=== PATIENT | female | born 1995 | race American Indian/Alaskan Native ===

== ENCOUNTER 2019-08-27 12:16 | Emergency (ER) | payer OTHER ==
[2019-08-27 12:20] VITALS: BP 149/69
[2019-08-27] MEDS ORDERED: ONDANSETRON 4 MG ODT TAB PO ONE (13:03)
--- NOTE | 2019-08-27 13:05 | Event Note ---
ED Screening Note ED Screening Note: lower abd pain 2 days with nausea, denies dysuria. oligomenorrhea hx. This initial assessment/diagnostic orders/clinical plan/treatment(s) is/are subject to change based on patients health status, clinical progression and re- assessment by fellow clinical providers in the ED. Further treatment and workup at subsequent clinical providers discretion. Patient/guardian urged not to elope from the ED as their condition may be serious if not clinically assessed and managed. Initial orders include: UA, UPT
[2019-08-27 14:31] LABS: Bilirubin,Urine NEG (Negative); Blood,Urine NEG (Negative); Color,Urine Straw (Yellow); Mucus,Urine FEW /HPF; Protein,Urine <15 mg/dL mg/dL (Negative); Urobilinogen,Urine < 2.0 mg/dL (<2.0)
[2019-08-27 14:34] LABS: HCG Qualitative,Urine Negative (Negative)
[2019-08-27 15:32] LABS: Basophils # (Auto) 0.1 K/mm3 (0.0-0.1); Eosinophils # (Auto) 0.2 K/mm3 (0.0-0.4); Eosinophils % (Auto) 1.9 % (0.0-4.3); Hematocrit 40.3 % (30.3-42.9); Hemoglobin 13.2 gm/dl (10.1-14.3); Lymphocytes # (Auto) 3.9 K/mm3 (1.2-5.4); Lymphocytes % (Auto) 37.9 % (13.4-35.0); Mean Corpuscular HGB Conc 33 % (30-34); Mean Corpuscular Volume 75 fl (79-97); Monocytes # (Auto) 0.6 K/mm3 (0.0-0.8); Monocytes % (Auto) 5.4 % (0.0-7.3); Platelet Count 334 K/mm3 (140-440); Red Blood Count 5.39 M/mm3 (3.65-5.03)
[2019-08-27] MEDS ORDERED: ONDANSETRON 4 MG ODT TAB ONE (15:39)
[2019-08-27 15:53] LABS: BUN/Creatinine Ratio 15; Blood Urea Nitrogen 9 mg/dL (7-17); Calcium 8.9 mg/dL (8.4-10.2); Hemolysis Index 5
--- NOTE | 2019-08-27 15:59 | Emergency Department Report ---
HPI - General Chief Complaint: Abdominal Pain Time Seen by Provider: 08/27/19 14:41 - HPI HPI: 24-year-old Afro-[place] female presents to the emergency department with complaint of lower abdominal and upper pelvic pain, some lower back pain, and nausea and vomiting, that all started this morning. The patient has a history of ovarian cysts. She has not taken anything for her symptoms prior to presentation. No PCP or MANAGER INTERFACE. No recent travel or sick contacts at home. She denies any fever, vaginal bleeding or discharge, dysuria, constipation or diarrhea. ED Past Medical Hx - Past Medical History Previous Medical History?: No - Surgical History Past Surgical History?: No - Social History Smoking Status: Never Smoker Substance Use Type: Alcohol - Medications Home Medications: Home Medications Medication Instructions Recorded Confirmed Last Taken Type Docusate Sodium [Colace] 100 mg PO BID PRN #20 capsule 08/27/19 Unknown Rx Magnesium Citrate [Citrate of 300 ml PO NOW #1 bottle 08/27/19 Unknown Rx Magnesia] ED Review of Systems ROS: Stated complaint: STOMACH/BACK PAIN Other details as noted in HPI Comment: All other systems reviewed and negative Constitutional: denies: chills, fever Respiratory: denies: cough, shortness of breath Cardiovascular: denies: chest pain, palpitations Gastrointestinal: abdominal pain, nausea, vomiting Genitourinary: denies: dysuria, discharge Musculoskeletal: back pain. denies: arthralgia Skin: denies: rash, lesions Neurological: denies: headache, weakness Physical Exam - Physical Exam Vital Signs: Vital Signs 08/27/19 12:19 Temperature 98.4 F Pulse Rate 88 Respiratory 16 Rate Blood Pressure 149/69 O2 Sat by Pulse 96 Oximetry Physical Exam: GENERAL: The patient is well-developed well-nourished. HEENT: Normocephalic. Atraumatic. Patient has moist mucous membranes. EYES: Extraocular motions are intact. NECK: Supple. Trachea is midline. CHEST/LUNGS: Clear to auscultation. There is no respiratory distress noted. HEART/CARDIOVASCULAR: Regular. There is no tachycardia. There is no murmur. ABDOMEN: Abdomen is soft. Mild lower abdominal tenderness to palpation. No guarding. Patient has normal bowel sounds. Morbidly obese habitus. SKIN:Skin is warm and dry. . NEURO: The patient is awake, alert, and oriented. The patient is cooperative. The patient has no focal neurologic deficits. Normal speech. MUSCULOSKELETAL: There is no tenderness or deformity. There is no evidence of acute injury. ED Course Vital Signs 08/27/19 12:19 Temperature 98.4 F Pulse Rate 88 Respiratory 16 Rate Blood Pressure 149/69 O2 Sat by Pulse 96 Oximetry ED Medical Decision Making - Lab Data Result diagrams: 08/27/19 15:16 08/27/19 15:16 - Radiology Data Radiology results: report reviewed, image reviewed interpreted by me: Abdominal x-ray shows increased stool volume and nonobstructive nonspecific bowel gas. ULTRASOUND PELVIS INDICATION: pelvic pain. TECHNIQUE: Transvaginal. Duplex Color Doppler used: Yes. COMPARISON: None available FINDINGS: Uterus: Present. Size: 7.3 x 3.3 x 4.2 cm. Endometrial complex: Normal measuring 0.5 cm. Mass lesions: None. Additional findings: None. Right Ovary: Size: 4.3 x 2.5 x 3.7 cm Blood flow: Normal. Cyst or mass: None. Left Ovary: Size: 5.1 x 2.8 x 2.2 cm Blood flow: Normal. Cyst or mass: None. Urinary Bladder: Not visualized. Free Fluid: None. Additional Findings: None. IMPRESSION: 1. No acute sonographic abnormality of the pelvis. - Medical Decision Making This patient presents with some lower abdominal and pelvic pain, some dysuria and low back pain that started this morning. On examination the patient has some mild lower abdominal tenderness to palpation but the abdomen is soft and nontoxic in appearance. It does not appear distended, however the patient has a morbidly obese habitus. The patient's labs were unremarkable including CBC, metabolic panel, urinalysis and urine . Transvaginal ultrasound did not show any signs of ovarian torsion or any other acute process. Abdominal x- ray shows nonspecific nonobstructive bowel gas with increased stool volume showing some constipation. Vital signs stable throughout her ED course. Patient was given some Zofran for her complaint of nausea but there has been no further vomiting since arrival to the emergency department. She was able to drink some water and was given a GI cocktail for her complaint of some indigestion. Vital signs stable throughout her ED course and the patient is saying that she is feeling improved and asking for discharge home. She has been instructed to follow up with a primary care physician and to return to the ER with any worsening of her symptoms or any acute distress. - Differential Diagnosis Torsion, ovarian cyst, , UTI, colitis Critical Care Time: No Critical care attestation.: If time is entered above; I have spent that time in minutes in the direct care of this critically ill patient, excluding procedure time. ED Disposition Clinical Impression: Increased stool volume Abdominal pain Qualifiers: Abdominal location: lower abdomen, unspecified Qualified Code(s): R10.30 - Lower abdominal pain, unspecified Back pain Qualifiers: Back pain location: low back pain Chronicity: unspecified Back pain laterality: bilateral Sciatica presence: without sciatica Qualified Code(s): M54.5 - Low back pain Disposition: TO HOME OR SELFCARE Is pt being admited?: No Condition: Stable Instructions: Constipation (ED), High Fiber Diet (ED), Abdominal Pain (ED), Back Pain (ED) Additional Instructions: Please follow up with a primary care physician in the next few days. Return to the emergency Department with any worsening of your symptoms or any acute distress. Prescriptions: Magnesium Citrate [Citrate of Magnesia] 300 ml PO NOW #1 bottle Docusate Sodium [Colace] 100 mg PO BID PRN #20 capsule PRN Reason: Constipation Referrals: PRIMARY CARE, [Primary Care Provider] - 3-5 Days IRA NATHAN MD [Staff Physician] - 3-5 Days FRANKIE JORGENSEN MD [Staff Physician] - 3-5 Days CHACHO LORENZO MD [Staff Physician] - 3-5 Days Forms: Accompanied Note, Work/School Release Form(ED) Time of Disposition: 16:45
--- NOTE | 2019-08-27 16:14 | Ultrasound Report ---
ULTRASOUND PELVIS INDICATION: pelvic pain. TECHNIQUE: Transvaginal. Duplex Color Doppler used: Yes. COMPARISON: None available FINDINGS: Uterus: Present. Size: 7.3 x 3.3 x 4.2 cm. Endometrial complex: Normal measuring 0.5 cm. Mass lesions: None. Additional findings: None. Right Ovary: Size: 4.3 x 2.5 x 3.7 cm Blood flow: Normal. Cyst or mass: None. Left Ovary: Size: 5.1 x 2.8 x 2.2 cm Blood flow: Normal. Cyst or mass: None. Urinary Bladder: Not visualized. Free Fluid: None. Additional Findings: None. IMPRESSION: 1. No acute sonographic abnormality of the pelvis. Signer Name: Dennis Felder MD Signed: 08/27/2019 4:10 PM Workstation Name: [id number]
[2019-08-27] MEDS ORDERED: ALUM-MAG HYDROXIDE-SIMETHICONE 200-200-20MG/5ML ORAL LIQD 30 ML PO ONE (16:18)
[2019-08-27] MEDS ORDERED: LIDOCAINE VISCOUS 2% 15 ML ORAL LIQD PO ONE (16:18)
--- NOTE | 2019-08-27 16:28 | XRay Report ---
ABDOMEN 2 VIEWS INDICATION / CLINICAL INFORMATION: Mid abdominal pain with constipation for 5 months. COMPARISON: None available. FINDINGS: TUBES / LINES: None. BOWEL GAS PATTERN: No dilated bowel loops are seen. A large amount of stool is present throughout the colon. FREE AIR / EXTRALUMINAL GAS: None seen. ADDITIONAL FINDINGS: No significant additional findings. IMPRESSION: 1. No significant abnormality. 2. Findings consistent with constipation. Signer Name: Dennis Felder MD Signed: 08/27/2019 4:23 PM Workstation Name: [email or web address]
== END 2019-08-27 17:01 | disposition home or self-care (01) ==
LOC: ED 12:16
DX: K56.41 Fecal impaction (principal); M54.5 Low back pain; R10.30 Lower abdominal pain, unspecified; R10.2 Pelvic and perineal pain; R11.2 Nausea with vomiting, unspecified; F10.10 Alcohol abuse, uncomplicated; Z79.899 Other long term (current) drug therapy
CPT/HCPCS: 36415; 74019; 76830; 80048; 81001; 81025; 85025; 93975; Q0162